=== PATIENT | female | born 1990 | race Caucasian/White ===

== ENCOUNTER 2017-11-29 20:30 | Emergency (ER) | payer OTHER ==
--- NOTE | 2017-11-29 23:56 | ER Document Report ---
ED General - General Chief Complaint: Cough Stated Complaint: COUGH,UPPER LEFT ABDOMINAL PAIN,CHILLS,FATIGUE Time Seen by Provider: 11/29/17 23:36 Notes: Patient is a 27-year-old female who presents with complaint of runny nose cough and congestion that is chronic but she also now has been noticing some pain on her left side. Patient's has a very odd history. She tells me that she has chronic Lyme, chronic babesiosis, chronic mycoplasma infection, and chronic Toya-Vidal virus. I asked the patient how she knows all this is chronic and she says "because I still always feels sick". She is followed by a primary care nurse practitioner who has her on chronic clarithromycin and Bactrim. I asked her if she sees infectious disease doctor and she says "no because they will just tell me that everything is okay". She says the main reason why she is here today is because she does have this pain over left lower ribs and left upper quadrant of her abdomen. It is worse with coughing. When asked her she knows of her Toya-Vidal virus infection is still active she says "well my labs always come back positive". I asked her if the IgG or IgM. She says "I know my IgG is always positive. I am not sure about my IgM." She denies any other abdominal pain. No vomiting. No active fevers. She has not checked her temp at home. No dysuria. TRAVEL OUTSIDE OF THE [place] IN LAST 30 DAYS: No Past Medical History - Social History Smoking Status: Former Smoker Frequency of alcohol use: None Drug Abuse: None Family History: Reviewed & Not Pertinent Patient has suicidal ideation: No Patient has homicidal ideation: No Renal/ Medical History: Denies: Hx Peritoneal Dialysis Review of Systems - Review of Systems Notes: My Normal Review Basic REVIEW OF SYSTEMS: CONSTITUTIONAL : Denies fever, chills, or sweats. Denies recent illness. EENT: Nasal congestion. CARDIOVASCULAR: Denies chest pain. RESPIRATORY: Recurrent cough GASTROINTESTINAL: LUQ abdominal pain. Denies nausea, vomiting, or diarrhea. GENITOURINARY: Denies difficulty urinating, painful urination, burning, frequency, or blood in urine. MUSCULOSKELETAL: Denies neck or back pain or joint pain or swelling. SKIN: Denies rash or skin lesions. NEUROLOGICAL: Denies altered mental status or loss of consciousness. Denies headache. Denies weakness or paralysis or loss of use of either side. Denies problems with gait or speech. Denies sensory or motor loss. ALL OTHER SYSTEMS REVIEWED AND NEGATIVE. Physical Exam - Vital signs Vitals: Temp Pulse BP Pulse Ox 99.2 F 74 126/77 H 100 11/29/17 21:07 11/29/17 21:07 11/29/17 21:07 11/29/17 21:07 - Notes Notes: General Appearance: Well nourished, alert, cooperative, no acute distress, no obvious discomfort. Well-appearing. Mild audible nasal congestion on exam. Vitals: reviewed, See vital signs table. Head: no swelling or tenderness to the head Eyes: PERRL, EOMI, Conjuctiva clear Mouth: No decreasd moisture Throat: No tonsillar inflammation, No airway obstruction, No lymphadenopathy Neck: Supple, no neck tenderness, No neck swelling Lungs: No wheezing, No rales, No rhonci, No accessory muscle use, good air exchange bilaterally. Heart: Normal rate, Regular rythm, No murmur, no rub Chest wall: Patient has palpation over the left lower ribs themselves. Abdomen: Normal BS, soft, No rigidity, initially questioned patient's abdomen she denies any pain. This includes pushing over left upper quadrant. I informed the patient that she does not appear to have any pain over her spleen and then she looks surprised and starts pushing on her own abdomen and says "I think I still have pain over there.", No guarding, no rebound, no abdominal masses, no organomegaly Extremities: strength 5/5 in all extremities, good pulses in all extremities, no swelling or tenderness in the extremities, no edema. Skin: warm, dry, appropriate color, no rash Neuro: speech clear, oriented x 3, normal affect, responds appropriately to questions. Course - Re-evaluation Re-evalutation: 11/30/17 04:57 I do not know the exact cause of patient's nasal congestion cough that she has been having. She is not at all ill-appearing. She complains of frequent cough however was in the room for long periods of time twice and she did not cough one time the entire time was in the room. She has just mild amount of nasal congestion. I informed her I am concerned that she is on these long-term antibiotics that are prescribed by a primary care nurse practitioner for which she says her chronic diseases which typically are not chronic. Informed her that she should really consider following up with infectious disease specialist to get a better idea if she should be on his chronic antibiotics. Patient seems very against this idea as she told me "infectious disease specialist will just tell me nothing is wall". Her exam is also very odd in that when I push on her abdomen initially she did not have any pain and I told her I did not think she had any problems with her intra-abdominal organs based on the fact that she had a painless abdominal exam she then started pushing on her abdomen herself and said that she thinks that there is something wrong. All her pain on my exam was mainly over the rib cage itself. I got a chest x-ray which showed no evidence of pneumonia. Her vital signs are normal. She is PERC rule negative. I also got an ultrasound of her spleen just because patient seemed very concerned that she had a problem in this area and she is convinced that she still has an Toya-Vidal virus infection even though she cannot tell me whether not she has a positive IgM titer. Ultrasound screen was negative. I recommended patient take [id number] allergy medicine on a daily basis being that her congestion cough been ongoing for a month now. Patient says that her symptoms are not related to allergies even though she has never tried any allergy medications. Encouraged him follow-up closely with her doctor and still encouraged her to follow-up with infectious disease physician. She is to return to ER if she has fevers or difficulty breathing, or worsening of her symptoms. Dictation of this chart was performed using voice recognition software; therefore, there may be some unintended grammatical errors. - Vital Signs Vital signs: Temp Pulse Resp BP Pulse Ox 99.1 F 79 18 104/60 100 11/30/17 02:43 11/30/17 02:43 11/30/17 02:43 11/30/17 02:43 11/30/17 02:43 Discharge - Discharge Clinical Impression: Cough, Rib pain on left side Condition: Good Disposition: HOME, SELF-CARE Additional Instructions: Please follow up with your doctor for reevaluation this week. I recommend that you talk to your doctor about referral to an infectious disease physician because of you r past medical history and to discuss whether or not terminal make up operator antibiotics is still appropriate. Please take over the counter nasal decongestants such as pseudophedrine to help with your congestion. Please consider taking a daily Loratadine in case seasonal allergies are playing a role. Forms: Return to Work
--- NOTE | 2017-11-30 00:57 | RADIOLOGY REPORT (SQ) ---
EXAM DESCRIPTION: XR CHEST 2 VIEWS COMPLETED DATE/TME: 11/29/2017 23:50 CLINICAL HISTORY: 27 years, Female, cough. Pain over left lower lung COMPARISON: None. NUMBER OF VIEWS: Two TECHNIQUE: Two views of the chest LIMITATIONS: None. FINDINGS: The lungs are clear. The heart is normal in size. There is no pneumothorax or pleural effusion. There is no acute fracture IMPRESSION: No acute cardiopulmonary abnormality 2010 [employer]- All Rights Reserved
--- NOTE | 2017-11-30 01:15 | RADIOLOGY REPORT (SQ) ---
EXAM DESCRIPTION: US ABDOMEN LIMITED COMPLETED DATE/TME: 11/29/2017 23:50 CLINICAL HISTORY: 27 years Female, look at spleen, left flank pain Comparison: None. Technique/LIMITATIONS: Targeted exam for requested parameters. FINDINGS: 10.4 cm spleen and 10.6-cm left kidney appear of normal size, shape, echotexture, and vascularity. IMPRESSION: Targeted exam from requested parameters.
[2017-11-30 02:47] VITALS: BP 104/60
== END 2017-11-30 02:47 | disposition home or self-care (01) ==
LOC: ER 20:30
DX: R07.81 Pleurodynia (principal); R05 Cough; R10.12 Left upper quadrant pain; R53.83 Other fatigue; R09.89 Other specified symptoms and signs involving the circulatory and respiratory systems; R09.81 Nasal congestion; Z87.891 Personal history of nicotine dependence
CPT/HCPCS: 71046; 76705; 99283